=== PATIENT | male | born 1990 | race Two or more races ===

== ENCOUNTER 2018-03-07 23:19 | Emergency (ER) | payer OTHER ==
[2018-03-07 23:29] VITALS: RESP 18
--- NOTE | 2018-03-07 23:39 | ED ---
General Adult HPI - General Chief complaint: Chest Pain Stated complaint: Chest Pain Time Seen by Provider: 03/07/18 23:20 Source: patient, EMS, RN notes reviewed, old records reviewed Mode of arrival: EMS Limitations: no limitations - History of Present Illness Initial comments: This is a 20-year-old male the ER for evaluation but this male presents for evaluation regards to chest discomfort some congestion shortness of breath. Patient currently going through detoxification and rehabilitation [place] for multiple drug abuse. Denies recent drugs rel call. Patient did recently start Subutex. Patient is a smoker. Denies any fevers, does have occasional increased cough and congestion. Denies any trauma, chest pain is just kind of dull occasional with cough admitted some tightness. Patient has no history of DVT no recent travel history no known sick contacts. - Related Data Allergies Allergy/AdvReac Type Severity Reaction Status Date / Time No Known Allergies Allergy Verified 03/07/18 23:30 Review of Systems ROS Statement: Those systems with pertinent positive or pertinent negative responses have been documented in the HPI. ROS Other: All systems not noted in ROS Statement are negative. Past Medical History Past Medical History: Hypertension History of Any Multi-Drug Resistant Organisms: None Reported Past Surgical History: Orthopedic Surgery Past Psychological History: No Psychological Hx Reported Smoking Status: Current every day smoker Past Alcohol Use History: Occasional Past Drug Use History: Cocaine, Heroin, Prescription Drug Abuse General Exam Limitations: no limitations General appearance: alert, in no apparent distress Head exam: Present: atraumatic, normocephalic, normal inspection Eye exam: Present: normal appearance, PERRL, EOMI. Absent: scleral icterus, conjunctival injection, periorbital swelling ENT exam: Present: normal exam, mucous membranes moist Neck exam: Present: normal inspection. Absent: tenderness, meningismus, lymphadenopathy Respiratory exam: Present: normal lung sounds bilaterally. Absent: respiratory distress, wheezes, rales, rhonchi, stridor Cardiovascular Exam: Present: regular rate, normal rhythm, normal heart sounds. Absent: systolic murmur, diastolic murmur, rubs, gallop, clicks GI/Abdominal exam: Present: soft, normal bowel sounds. Absent: distended, tenderness, guarding, rebound, rigid Extremities exam: Present: normal inspection, full ROM, normal capillary refill. Absent: tenderness, pedal edema, joint swelling, calf tenderness Back exam: Present: normal inspection Neurological exam: Present: alert, oriented X3, CN II-XII intact Psychiatric exam: Present: normal affect, normal mood Skin exam: Present: warm, dry, intact, normal color. Absent: rash Course Vital Signs 03/07/18 23:22 Temperature 98.1 F Pulse Rate 75 Respiratory 18 Rate Blood Pressure 134/76 O2 Sat by Pulse 98 Oximetry - Reevaluation(s) Reevaluation #1: 03/07/18 23:54 Patient states here in the ER symptoms are resolved EKG Findings - EKG Comments: EKG Findings:: EKG shows sinus rhythm rate of 75, MN 1:30, QRS 96, QTc 410 Medical Decision Making - Medical Decision Making 20 male the ER for evaluation. Patient complaining of occasional cough congestion shortness of breath. Likely bronchitis, given steroids shot here in the ER. No acute distress. Patient can be discharged home - Radiology Data Radiology results: report reviewed (Chest x-rays negative for acute disease), image reviewed Disposition Clinical Impression: Chest pain, Acute bronchitis Disposition: HOME SELF-CARE Condition: Good Instructions: Chest Pain (ED) Is patient prescribed a controlled substance at d/c from ED?: No Referrals: None,Stated [Primary Care Provider] - 1-2 days
--- NOTE | 2018-03-07 23:49 | XR ---
EXAMINATION TYPE: XR chest 2V DATE OF EXAM: 03/07/2018 COMPARISON: NONE HISTORY: Chest pain TECHNIQUE: Frontal and lateral views of the chest are obtained. FINDINGS: Heart and mediastinum are normal. Lungs are clear. Diaphragm is normal. There are chest le ads. Bony thorax is intact. IMPRESSION: Normal chest
[2018-03-07] MEDS ORDERED: SODIUM CHLORIDE 0.9% 1,000 ML IV STA (23:53)
[2018-03-07] MEDS ORDERED: DEXAMETHASONE SOD PHOSPHATE 10 MG/ML 1 ML VIAL IV STA (23:53)
[2018-03-07] MEDS ORDERED: IPRATROPIUM-ALBUTEROL 3 ML NEB INHALATION STA (23:53)
[2018-03-08 00:01] LABS: Basophils % (A) 0 %; Eosinophils # (A) 0.2 k/uL (0-0.7); Eosinophils % (A) 2 %; HCT 37.5 % (39.0-53.0); HGB 11.4 gm/dL (13.0-17.5); Hypochromasia Slight; Lymphocytes # (A) 1.6 k/uL (1.0-4.8); Lymphocytes % (A) 20 %; MCH 20.8 pg (25.0-35.0); MCHC 30.5 g/dL (31.0-37.0); MCV 68.2 fL (80.0-100.0); Mean Platelet Volume 6.3; Microcytosis Marked; Monocytes # (A) 0.4 k/uL (0-1.0); Monocytes % (A) 5 %; Neutrophils # (A) 5.6 k/uL (1.3-7.7); Neutrophils % (A) 71 %; Platelet Count 134 k/uL (150-450); RDW 15.6 % (11.5-15.5); WBC 7.9 k/uL (3.8-10.6)
[2018-03-08 00:08] LABS: ALT 30 U/L (21-72); AST 22 U/L (17-59); Albumin 3.8 g/dL (3.5-5.0); Alkaline Phosphatase 76 U/L (38-126); Anion Gap 5 mmol/L; Blood Urea Nitrogen 17 mg/dL (9-20); Calcium 9.2 mg/dL (8.4-10.2); Carbon Dioxide 27 mmol/L (22-30); Chloride 106 mmol/L (98-107); Glucose 100 mg/dL (74-99); Magnesium 2.1 mg/dL (1.6-2.3); Potassium 3.5 mmol/L (3.5-5.1); Sodium 138 mmol/L (137-145); Total Bilirubin 0.4 mg/dL (0.2-1.3); Total Protein 6.7 g/dL (6.3-8.2)
[2018-03-08 00:12] LABS: INR 1.1 (<1.2); Partial Thromboplastin Time 24.5 sec (22.0-30.0); Prothrombin Time 10.3 sec (9.0-12.0)
[2018-03-08 00:18] LABS: Creatine Kinase 251 U/L (55-170)
[2018-03-08 00:31] LABS: Creatine Kinase MB 0.7 ng/mL (0.0-2.4); Troponin I <0.012 ng/mL (0.000-0.034)
[2018-03-08 00:37] LABS: Poikilocytosis (M) Present; RBC Fragments Present
[2018-03-08 00:40] VITALS: BP 138/69; PULSE 69; TEMP 97.9
== END 2018-03-08 00:41 | disposition home or self-care (01) ==
LOC: EC 23:19
DX: J20.9 Acute bronchitis, unspecified (principal); F17.200 Nicotine dependence, unspecified, uncomplicated
CPT/HCPCS: 36415; 94640; 93005; 80053; 82550; 82553; 83735; 84484; 85025; 85610; 85730; 71046; 99285; 96374; 96361; J1100